=== PATIENT | female | born 1990 | race Caucasian/White ===

== ENCOUNTER → 2018-04-11 | Outpatient (CLI) | payer BC ==
[~2018-04-11] MED LIST: MTR600X PO; [UNRECOGNIZED DRUG - CODE] PO
--- NOTE | 2018-04-11 13:15 | DIAGNOSTIC IMAGING REPORT ---
Nuclear gastric emptying study: CLINICAL HISTORY: Nausea in adult. Weight loss, unintentional. COMPARISON STUDY: None. TECHNIQUE: Following the oral administration of 1.1 mCi of technetium 99m sulfur colloid in egg sandwich and 8 ounces of water, static abdominal images were obtained anteriorly and posteriorly at 0 minutes, 1 hour, 2 hour, and 4 hour time intervals. Gastric emptying was calculated utilizing the geometric mean method. FINDINGS: There is approximately 81% gastric activity remaining at the 1 hour time interval (normal is less than 90%), 45% at the 2 hour time interval (normal is less than 60%), and 3% remaining at the 4 hour time interval (normal is less than 10%). IMPRESSION: No evidence for delayed gastric emptying. Electronically signed by: Wilder Mackenzie M.D. 04/11/2018 1:14 PM Dictated Date/Time: 04/11/2018 1:11 PM
== END | disposition home or self-care (01) ==
LOC: C.NUCL 08:20
PROVIDERS: ATTEND Physician Assistant
DX: R63.4 Abnormal weight loss (principal); R11.0 Nausea

== ENCOUNTER → 2018-04-25 | Outpatient (CLI) | payer BC ==
[~2018-04-25] MED LIST changes: +OPTIRAY 320 IV PRN
--- NOTE | 2018-04-25 11:57 | DIAGNOSTIC IMAGING REPORT ---
ABD/PELVIS IV AND ORAL CONT CLINICAL HISTORY: 27 years-old Female presenting with ABD PAIN,DIARRHEA,NAUSEA,WT LOSS. TECHNIQUE: Multidetector CT of the abdomen and pelvis was performed after the administration of oral and intravenous contrast. IV contrast: 91 mL of Optiray 320. A dose lowering technique was used consistent with the principles of ALARA (as low as reasonably achievable). COMPARISON: None. CT DOSE (mGy.cm): The estimated cumulative dose is 323.04 mGy.cm. FINDINGS: Gun Number topogram: Unremarkable. Lung bases: Minimal basilar opacities, likely atelectasis. Normal heart size. No pericardial or pleural effusion. Liver: Normal morphology. No liver lesion. Patent hepatic vasculature. Biliary: No intrahepatic or extrahepatic biliary ductal dilatation. Normal gallbladder. Pancreas: Normal. Spleen: Normal. Adrenal glands: Normal. Kidneys and ureters: Normal. No hydronephrosis. Bladder: Normal. Pelvic organs: The right ovary is not clearly visualized and may be absent. The left ovary is prominent though within the range of normal for the patient's age. The uterus is normal. A tampon is noted in the vagina. Bowel: Normal appendix. No bowel obstruction. Peritoneal cavity: No free fluid or intraperitoneal gas. Lymph nodes: No enlarged lymph nodes in the abdomen or pelvis. Vasculature: Aorta and IVC patent and normal in caliber. Abdominal wall: Small fat-containing umbilical hernia. Musculoskeletal: Normal. IMPRESSION: 1. No acute intra-abdominal pathology. 2. The right ovary may be absent or diminutive. Electronically signed by: Pankaj [place] M.D. 04/25/2018 11:56 AM Dictated Date/Time: 04/25/2018 11:51 AM
== END | disposition home or self-care (01) ==
LOC: C.CTS 09:04
PROVIDERS: ATTEND Physician Assistant
DX: R63.4 Abnormal weight loss (principal); R11.0 Nausea; R19.7 Diarrhea, unspecified; R10.9 Unspecified abdominal pain